=== PATIENT | male | born 1930 | race Caucasian/White ===

== ENCOUNTER 2020-05-24 18:44 | Inpatient (IN) | payer MEDICARE ==
[~2020-05-24] VITALS: Ht 185.4 cm; Wt 104.2 kg
[2020-05-24] MEDS ORDERED: METOPROLOL TART50 MG PO (19:16)
[2020-05-24] MEDS ORDERED: FUROSEMIDE40 MG PO (19:16)
[2020-05-24] MEDS ORDERED: ALDACTONE25 MG PO (19:16)
[2020-05-24] MEDS ORDERED: LIPITOR40 MG PO (19:17)
[2020-05-24] MEDS ORDERED: COZAAR100 MG PO (19:17)
[2020-05-24] MEDS ORDERED: FLOMAX0.4 MG PO (19:18)
[2020-05-24] MEDS ORDERED: FAMOTIDINE40 MG PO (19:18)
[2020-05-24] MEDS ORDERED: ASPIRIN81 MG PO (19:18)
[2020-05-24] MEDS ORDERED: STOOL SOFTENER100 MG PO (19:19)
--- NOTE | 2020-05-24 23:37 | NUR ---
2305 PATIENT ARRIVED VIA STRETCHER. REQUIRED 3PA TO TRANSFER TO BED. PATIENT IS ALERT AND ORIENTED. VS WNL. PATIENT REQUIRED 2L NC IN ED, CONTINUED TREATMENT IN CCU. PATIENT HAS ABRASIONS ON THE BACK OF HIS HEAD THAT ARE NO LONGER BLEEDING. ABRASION ON LEFT KNEE THAT IS CLEAN AND STARTING TO SCAB OVER. IV FLUIDS STARTED. PATIENT HAS YET TO VOID. REPORTS PAIN 8/10 WITH GOAL OF 4. PRN OXY PROVIDED AND LIDOCAIN PATCH APPLIED TO PATIENT'S LOWER BACK. 2+ EDEMA NOTED IN CHAIM LOWER LEGS, PATIENT REPORTS THAT IS "PRETTY GOOD" FOR HIM. ABD IS LARGE, NONTENDER. LAST BM TODAY. NO GI UPSET. LUNG SOUNDS ARE CLEAR. PATIENT DENIED ANY FURTHER NEEDS. CALL LIGHT IN HAND. LIGHTS DIMMED.
--- NOTE | 2020-05-25 02:30 | NUR ---
PATIENT WOKE EASILY TO VOICE. HAS BEEN SLEEPING SOUNDLY. REPORTS BETTER PAIN CONTROL. ENCOURAGED PATIENT TO ATTEMPT TO VOID. PATIENT USED URNAL IN BED INDEPENDENTLY/ 225 MLS OF SLIGHTLY CONCENTRATED URINE NOTED. PATIENT REPORTS BEING COMFORTABLE. DENIES ANY FURTHER NEEDS. CALL LIGHT IN REACH.
--- NOTE | 2020-05-25 05:00 | NUR ---
LAB IN FOR MORNING DRAW. PATIENT WAKES EASILY. DENIES ANY NEEDS FROM RN.
--- NOTE | 2020-05-25 06:00 | NUR ---
PATIENT RESTING IN BED. REPORTS PAIN COMFORTABLE AT REST. HOWEVER PATIENT IS SHIFTED DOWN IN BED AND REQUIRES REPOSITIONED. DORENE AVILA REPORTS PAIN 8/10 AND REQUEST PAIN MEDS. PATIENT DOES NOT WANT THE PRN OXY AND HAS LIDOCAIN PATCH IN PLACE. SCHEDULED TYLENOL PROVIDED EARLY. PATIENT IS 99% ON 2L NC. TITRATED TO ROOM AIR AND PATIENT DESAT TO 88% AFTER A FEW MINS. PLACED BACK ON 2L NC. COFFEE PROVIDED. PATIENT VOIDED IN URNAL. IV FLUIDS PER ORDER, SITE WNL. VS STABLE.
--- NOTE | 2020-05-25 08:47 | NUR ---
PT IS SITTING UP IN BED. WAS ABLE TO EAT HIS BREAKFAST. HAS NO DESIRE TO VOID AT THIS TIME. WATER AND COFFEE AT BEDSIDE TABLE. CURRENTLY ON ROOM AIR, HE IS AWAKE AND 02 IS AT A 96%. CALL LIGHT WITHIN REACH.
--- NOTE | 2020-05-25 09:15 | NUR ---
PATIENTS 02 LEVELS DESTATED TO 86%, WHILE AWAKE AND SPEAKING AND PERFORMING MOVEMENENTS IN BED WITH THE PHYSICAL THERAPIST. pLACED HIM ON 1L O2 NASAL CANULA.
--- NOTE | 2020-05-25 09:20 | NUR ---
FLUIDS WERE DC'D PER DOCTORS ORDERS. SALINE LOCKED HIM. PATIENT IS WORKING WITH PHYSICAL THERAPIST.
--- NOTE | 2020-05-25 10:25 | NUR ---
FULL VERBAL REPORT GIVEN TO KAISER MERRILL, ALL QUESTIONS ANSWERED.
--- NOTE | 2020-05-25 11:11 | NUR ---
PATIENT ARRIVED TO FLOOR VIA CHAIR WITH GEOVANNA SHAIKH. THIS RN INTO ROOM, PATIENT REMAINS IN CHAIR, AT BEDSIDE. PATIENT DENIES PAIN AT THIS TIME AND STATES HE WISHES TO AVOID NARCOTICS. PATIENT STATES HE FEELS HE IS DOING WELL AND WOULD LIKE TO NAP IN THE CHAIR. ASSESSMENT COMPLETED. WATER GIVEN TO PATIENT AND . BLANKET AND PILLOW GIVEN TO PATIENTS FOR COMFORT. NO FURTHER NEEDS AT THIS TIME, CALL LIGHT RESTING IN PATIENTS CHAIR.
--- NOTE | 2020-05-25 13:39 | NUR ---
THIS RN INTO ROOM WITH GEOVANNA MERRILL. PATIENT REQUESTING TO GET BACK TO BED. PATIENT 2 PERSON ASSIST WITH WALKER. PATIENT VERY PAINFUL WITH TRANSFER. PEG AT BEDSIDE REQUESTING TO DISCUSS PATIENTS REGULAR MEDICATIONS. PATIENT MEDICATION LIST OBTAINED FROM AND FAXED TO PHARMACY. PATIENT AGREES TO PRN NARCOTIC PAIN MEDICATION AT THIS TIME. PATIENT GIVE OXYCODONE 5 MG. PATIENT RESTING IN BED, AT BEDSIDE TALKING WITH DAUGHTER ON PHONE.
--- NOTE | 2020-05-25 17:31 | NUR ---
Pt in [place] visiting friends. Discussed plan for pt to return to his home in [facility]. Pt states he has severe pain when getting up or moving of 10/10. He comfortable at rest with pain pills. Does not feel he could ride 12 hours to home. We discussed driving 4 hours and staying the night, I have concerns as I am not sure his could transfer from the truck to the motel room. We also discussed pt returning to his friend home and staying a week or so until his pain has lessened and he can ride in a truck. Fall happened the first day of his stay at his friends home. Pt denies use of DME at baseline, does use a walking stick. Denies financial issues SDOH barriers. Will discuss again in the am as pts had returned to friends house.
--- NOTE | 2020-05-25 18:00 | NUR ---
PRN MED PASS pt encouraged to revisit the level of pain he is in. pt reassessed his own pain and would like something stronger for his pain so that he would be comfortable enough to sleep tonight. pt denies further needs at this time, table and call light within reach.
--- NOTE | 2020-05-25 19:26 | NUR ---
SHIFT REPORT RECEIVED FROM DB MERRILL. PT RESTING IN BED, EYES CLOSED. RR EVEN, UNLABORED. CALL LIGHT IN REACH.
--- NOTE | 2020-05-25 20:30 | NUR ---
ASSESSMENT, VS AND I&O COMPLETED. PT BACK AND HEAD PAIN 03/22. IV WNL, CDI, FLUSHED WELL. ABRASIONS NOTED TO BACK OF HEAD. LUNGS CLEAR, HEART TONES REGULAR. ABD SOFT, NONTENDER, BOWEL TONES ACTIVE, PT STATES NORMAL. CMS INTACT. ICE WATER PROVIDED. SCDs ON. NO OTHER NEEDS AT THIS TIME. CALL LIGHT IN REACH.
--- NOTE | 2020-05-25 23:18 | NUR ---
PT RESTING IN BED, EYES CLOSED. RR EVEN, UNLABORED. SCDs ON. CALL LIGHT IN REACH.
--- NOTE | 2020-05-26 01:30 | NUR ---
PT AWAKE IN ROOM. PAIN 2/10, DENIES NEED FOR INTERVENTION. ICE WATER PROVIDED. NO OTHER NEEDS. CALL LIGHT IN REACH.
--- NOTE | 2020-05-26 03:45 | NUR ---
PT RESTING IN BED, EYES CLOSED. RR EVEN, UNLABORED. CALL LIGHT IN REACH.
--- NOTE | 2020-05-26 05:38 | NUR ---
ASSESSMENT, VS AND I&O COMPLETED. PT DOES NOT MEET UO PARAMETERS, NOTIFIED IN [employer] MESSAGE. URINE IS URBANO AND HAS STRONG ODOR, EDUCATION PROVIDED. ICE WATER PROVIDED. PT PAIN IN BACK 10, PT DECLINES PAIN MEDS. GCS 15, A&O X4. LUNGS CLEAR, HEART TONES REGULAR. ABD SOFT, NONTENDER, BOWEL TONES ACTIVE. CMS INTACT. 1+ BLE EDEMA. IV WNL. SCDs ON. NO OTHER NEEDS AT THIS TIME. CALL LIGHT IN REACH.
--- NOTE | 2020-05-26 06:25 | NUR ---
PT WAS NOT URINE SUFFICIENT BY 25ML THIS SHIFT AND URINE WAS URBANO WITH STRONG ODOR, ICE WATER AND EDUCATION PROVIDED. VSS. PT HAD PRN PAIN MED ONCE. WOUNDS OPEN TO AIR, UNCHANGED. IV WNL. PT HAS 1+BLE EDEMA, SCDs ON. GCS 15, A&O X4.
--- NOTE | 2020-05-26 07:00 | NUR ---
REPORT RECEIVED FROM KAVITHA MERRILL. URINAL EMPTIED OF 50 MLS CONCENTRATED URINE. PT IN BED, EYES CLOSED. VISUALIZED CHEST RISE AND FALL.
--- NOTE | 2020-05-26 09:00 | NUR ---
PT AWAKE, STATES HE IS "IN A LOT OF PAIN". STATES "EVERYTHING HURTS BUT MOSTLY MY BACK". GIVEN PAIN MEDS ALONG W/ MORNING MEDICATIONS. PT STATES HE NEEDS TIME FOR PAIN MEDICATIONS TO KICK IN BEFORE MOVING TO THE CHAIR THIS MORNING. CALL LIGHT IN REACH. IN ROOM.
--- NOTE | 2020-05-26 10:30 | NUR ---
MD AWARE OF LOW URINE OUTPUT. IRREGULAR HR. DECREASED O2 SATS ON ROOM AIR. INCREASED PAIN. CONSTIPATION. SEE RN NOTE.
--- NOTE | 2020-05-26 10:45 | NUR ---
IN TO COMPLETE ASSESSMENT. LUNG SOUNDS ARE CLEAR BUL, DIMINISHED IN BASES. O2 SATS 88% ON ROOM AIR WHILE ASLEEP, PT PUT ON 2 L NC, NOW SATING 97%. SLIGHTLY TACHYCARDIC AT 116. PT STATES HE'S IN 10/10 LOWER BACK PAIN. +1EDEMA BLE. BOWEL TONES ACTIVE. ABD IS MODERATELY DISTENDED AND PT STATES HE FEELS CONSTIPATED AND HAS NOT HAD A BM SINCE 05/24. PT UP AND ABLE TO PIVOT TRANSFER TO CHAIR. LIDOCAINE PATCH PLACED ON LOWER BACK. HR SOUNDS IRREGULAR, DR NORTH NOTIFIED AND EKG ORDERED. PT HAS HAD LOW URINE OUTPUT OF 50 MLS/LAST 4 HOURS, BLADDER SCANNED AND 60 MLS NOTED, DR NORTH NOTIFIED AND ORDERS FOR LR @ 100 MLS/HR.
--- NOTE | 2020-05-26 11:00 | NUR ---
Spoke with pt and . Pt states he is having a "terrible day". Has 02 on as he can not take deep breath. Discussed options with , discussed options for [facility] or return to friends home. Friends have 8 steps into home pt will not be able to navigate. Pt is [facility], but is not service connected. Dr. Reyes to room and pt begins telling him of his pain and how he cannot move as he has pain of 10/10. Dr would like MRI, but pt has a defib/pacemaker. was able to give [employer] cards. I called and per [facility], [id number] may not have an MRI. Dr. Reyes updated. They will procede with other images for back and stomach pain. has decided to make this pt an IP for uncontrolled pain. would like pt to go to a SNF on dc until he is able to rehab and tolerate the ride home. Reviewed Medicare.gov SNF with and viewed SNFS in the area and their rating. would like pt to go to [facility] in [place] as they have a 5 star rating. I will call for a bed and fax chart. Possible discharge at beginning mid of next week.
--- NOTE | 2020-05-26 11:00 | NUR ---
DR NORTH IN TO ASSESS PT. NOTIFIED OF PT SATING 88% ON ROOM AIR AND REQUIRING 2 L NC. ALSO AWARE OF PT'S INCREASED PAIN, NEW ORDERES FOR IV MORPHINE, 1 MG GIVEN. PT TO HAVE CT W/ CONTRAST C-SPINE/ABD. IMAGING CALLED W/ REQUESTS TO GIVE PT PO CONTRAST NOW, AGAIN AT 1300, AND PT TO GO TO CT AT APPROX 1400. RT TO COMPLETE EKG, SINUS TACH W/ FREQUENT PVC'S. CBC AND CMP DRAWN. PT REMAINS UP IN CHAIR. CALL LIGHT IN REACH. IN ROOM.
--- NOTE | 2020-05-26 12:01 | NUR ---
PT TO IMAGING, WILL CHECK BACK
--- NOTE | 2020-05-26 12:30 | NUR ---
IN TO GIVE PT ORAL CONTRAST W/ APPLE JUICE. PT TOLERATING WELL.
--- NOTE | 2020-05-26 13:16 | EKG ---
[facility] [address] [place], [place] [address] Signed Sinus rhythm with 1st degree AV block with occasional premature ventricular complexes Incomplete left bundle branch block Borderline ECG No previous ECGs available Confirmed by GENTRY NORTH DO ([id number]) on 05/26/2020 1:16:25 PM Electronically Signed By: GENTRY NORTH DO 05/26/20 1316 PATIENT NAME: ANDREEA CURRY Electrocardiogram DATE OF : [birth year] PHYSICIAN: GENTRY NORTH DO REPORT #: [id number] REPORT IS CONFIDENTIAL AND NOT TO BE RELEASED WITHOUT AUTHORIZATION
--- NOTE | 2020-05-26 13:19 | EKG ---
[facility] [address] [place], [place] [address] Signed Sinus tachycardia with frequent premature ventricular complexes Otherwise normal ECG When compared with ECG of 24-MAY-2020 19:40, (Unconfirmed) AK interval has decreased Confirmed by GENTRY NORTH DO ([id number]) on 05/26/2020 1:19:20 PM Electronically Signed By: GENTRY NORTH DO 05/26/20 1319 PATIENT NAME: ANDREEA CURRY Electrocardiogram DATE OF : [birth year] PHYSICIAN: GENTRY NORTH DO REPORT #: [id number] REPORT IS CONFIDENTIAL AND NOT TO BE RELEASED WITHOUT AUTHORIZATION
--- NOTE | 2020-05-26 13:30 | NUR ---
PT REQUESTING TO MOVE BACK TO BED. 2 PA ASSIST TO PIVOT W/ FWW. PT BACK IN BED. SCD'S ON. 5 MG OXYCODONE GIVEN. 2ND ROUND OF ORAL CONTRAST W/ APPLE JUICE GIVEN. PT STATES PAIN IS DECREASING W/ PAIN MEDICATIONS RECEIVED TODAY. OFFERED URINAL TO VOID DURING XFER AND PT CONTINUES TO DENY NEED. PT STATES HE IS COMFORTABLE AND WOULD LIKE TO REST. CALL LIGHT INR EACH.
--- NOTE | 2020-05-26 14:20 | NUR ---
PT DEPARTED TO CT
--- NOTE | 2020-05-26 15:10 | NUR ---
PT RETURNED FROM CT. GIVEN PO TYLENOL FOR LOWER BACK PAIN. ALSO GIVEN IV LASIX 10 MG. RESTING IN BED. PUT BACK ON 2 L O2 VIA NC WHILE ASLEEP. SATS 88-90% ON ROOM AIR WHILE SLEEPING. CALL LIGHT IN REACH.
--- NOTE | 2020-05-26 15:30 | NUR ---
DR DONAHUE NOTIFED OF NO URINE OUT FOR THE LAST 4 HOURS AND SODIUM LAB DECREASE TO 130. ORDERS FOR 10 MG IV LASIX GIVEN AND NO CHANGE TO IV FLUIDS. CONTINUE LR @ 100 MLS/HR
--- NOTE | 2020-05-26 15:55 | NUR ---
DR DONAHUE CALLED ABOUT LOW URINE OUTPUT. PT HAS HAD 100 MLS THIS SHIFT AND NONE IN THAT LAST FOR HOURS. ORDERS FOR 10 MG IV LASIX ONCE, NO CHANGE TO FLUIDS. CONTINUE LR @ 100.
--- NOTE | 2020-05-26 16:00 | NUR ---
PT RECEIVED BED BATH W/ MARGARETTE SHAIKH ASSISTANCE. STATES HE FEELS MUCH BETTER.
--- NOTE | 2020-05-26 17:58 | NUR ---
IN TO MEDICATE PT W/ 5 MG OXYCODONE AND PO TYLENOL. REPORTS PAIN IS BETTER AT REST, ABD 5/10. REFUSING DINNER. PT HAS HAD POOR ORAL INTAKE TODAY. GIVEN ENSURE. PT APPEARS SLIGHTLY LESS DISTENDED AND ABD IS SOFTER. URINE OUTPUT HAS IMPROVED AFTER 10 MG LASIX. VOIDED 225 IN URINAL. BACK TO BED. EDUCATED ON INCENTIVE SPIROMETER AND ENCOURAGED TO USE FREQUENTLY TO PREVENT PNEUMONIA. CALL LIGHT IN REACH. PT CALLS APPROPRIATELY.
--- NOTE | 2020-05-26 19:00 | NUR ---
SHIFT REPORT RECEIVED FROM NILE. PT DENIES PAIN AT THIS TIME. CALL LIGHT IN REACH.
--- NOTE | 2020-05-26 19:22 | NUR ---
THE PATIENT'S HELPED ME GIVE HIM A BED BATH AND ALSO SHAMPOO HIS HAIR AND PUT LOTION ON HIS ARMS AND FEET.
--- NOTE | 2020-05-26 22:03 | NUR ---
ASSESSMENT, VS AND I&O COMPLETED. SCHEDULED MEDS PROVIDED. PT DENIES BACK PAIN. GCS 15, A&O. LUNGS CLEAR, 97% ON 1L NC. HEART TONES REGULAR. ABD MORE FIRM THAN NORMAL ACCORDING TO PT, MILDLY DISTENDED, PT STATES HE HAS SOME ABD DISCOMFORT "LIKE I HAVE ON A BELT THAT IS TOO TIGHT". PT IS PASSING GAS, BOWEL TONES ACTIVE. CMS INTACT. SCDs ON. TRACE EDEMA IN BLE. IV WNL, CDI, FLUSHED WELL. IV FLUIDS INFUSING PER ORDER. PT IS ON BED SQUIRES.
--- NOTE | 2020-05-26 22:25 | NUR ---
PT TAKEN OFF BEDPAN. NO RESULTS. NO OTHER NEEDS AT THIS TIME. CALL LIGHT IN REACH.
--- NOTE | 2020-05-27 | NUR ---
PT RESTING IN BED, EYES CLOSED. RR EVEN, UNLABORED. CALL LIGHT IN REACH.
--- NOTE | 2020-05-27 02:15 | NUR ---
PT RESTING IN BED, EYES CLOSED. RR EVEN, UNLABORED. CALL LIGHT IN REACH.
--- NOTE | 2020-05-27 04:00 | NUR ---
PT RESTING IN BED, EYES CLOSED. RR EVEN, UNLABORED. IV FLUIDS INFUSING PER ORDER. CALL LIGHT IN REACH.
--- NOTE | 2020-05-27 06:21 | NUR ---
ASSESSMENT, VS AND I&O COMPLETED. PT DENIES ALL PAIN THIS MORNING. GCS 15, A&O X4. LUNGS CLEAR. HEART TONES IRREGULAR. ABD MILDLY FIRM, NONTENDER, PT STATES MILDLY DISTENDED, BOWEL TONES ACTIVE. PT HAS BEEN PASSING FLATUS BUT NO BM YET. CMS INTACT. IV WNL, IV FLUIDS INFUSING PER ORDER. ABRASIONS ON PETERIOR SCALP HEALING WELL, WNL. LEFT KNEE ABRASION WNL. BLE EDEMA 1+. NO OTHER NEEDS AT THIS TIME. CALL LIGHT IN REACH.
--- NOTE | 2020-05-27 10:28 | NUR ---
CALL LIGHT ANSWERED. PT ATTEMPTED TO VOID IN URINAL AND SPILLED IN ON FLOOR AND BEDDING. LINENS CHANGED AND PT ASSISTED TO CHAIR. NEW GOWN PROVIDED [facility] CALLED. PT ATE ALL OF BREAKFAST. VANCO STARTED. MOTHER AT BEDSIDE. [place]ALLASS PAIN. CALL LIGHT IN REACH.
--- NOTE | 2020-05-27 10:38 | NUR ---
Oxycodone 5mg po admin for 6/10 lower back pain.
--- NOTE | 2020-05-27 12:01 | NUR ---
Patient sitting up in bed eating lunch. Patient reports recent oxycodone is helping his lower back pain. No needs at this time. Personal supplies and call light within reach. No needs at this time.
--- NOTE | 2020-05-27 14:16 | NUR ---
CALL MADE TO JASMINA FROM IMAGING. PER REQUEST DR DONAHUE WANTS IMAGIES SENT TO [facility].
--- NOTE | 2020-05-27 15:00 | NUR ---
Assisted patient to bedside commode. Patient given a bit of time to attempt to have bm; remained with patient per their request for privacy. This RN and GARFIELD Sorensen in to assist patient to go back to bed. Patient reports "terrible stomach pain". Patient reports he suffers from chronic constipation, but "never this bad". at bedside asked this RN "what are you going to do about this". This RN asked patient if he has any other discomfort or symptoms-patient declined and reports "just stomach and back pain". Patient denies chest pain and or shortness of breath at this time. Suppository order present in room at this time and to be admin with RN Franchesca page. RN-education provided to patient and regarding suppository medication, possibility of increased pain when sitting in upright position for an extended period of time. appears upset with patient being uncomfortable. This RN encouraged patient to take pain medications to help with pain-pt receptive and took. Patient assisted back to bed and suppository given as ordered. Education done with patient and on pain management, when to ask for pain medications and how frequent patient can have them. Morphone IVP discontinued as patient reports he does not tolerate well. Dilaudid started in replacement of morphine per Dr. Santos for breakthrough pain. Patient reports lower back pain as 9/10. Patient offered dilaudid at this time-patient declined to take at this time. Encouraged patient and to call for assistance and to speak of if there are needs-bother patient and receptive to plan of care at this time.
--- NOTE | 2020-05-27 18:28 | NUR ---
Patient in bed resting, alert and oriented x3. Patient denies pain at this time. Patient provided with ensure. Fresh water provided. Personal supplies and call light within reach.
--- NOTE | 2020-05-27 19:35 | NUR ---
SHIFT REPORT RECEIVED FROM DAYSHIFT [facility] AT BEDSIDE, pt AWAKE AND RESTING IN BED. ALSO IN ROOM. BOARD UPDATED, CALL LIGHT IN REACH.
--- NOTE | 2020-05-27 19:44 | NUR ---
in to provide pt with urinal, no further needs, in rm
--- NOTE | 2020-05-27 20:39 | NUR ---
ASSESSMENT COMPLETE, SCHEDULED MEDS GIVEN. VSS, HR SOMEWHAT TACHY, SCHEDULED LOPRESSOR GIVEN. IV SITE WNL, FLUSHES EASILY. pt REFUSES PAIN PATCH AT THIS TIME, DENIES PAIN AT REST. SCHEDULED TYLENOL GIVEN. pT BOOSTED IN BED, IN ROOM. NO FURTHER NEEDS. CALL LIGHT IN REACH. pT PLACED ON 1.5LNC FOR O2 SAT IN UPPER 80'S, WILL MONITOR.
--- NOTE | 2020-05-27 23:17 | NUR ---
pt RESTING QUIETLY IN BED, EYES CLOSED. RR EVEN AND UNLABORED. 1.5LNC IN PLACE, NO NEEDS VERBALIZED. CALL LIGHT IN REACH.
--- NOTE | 2020-05-28 00:58 | NUR ---
CALL LIGHT ANSWERED, pt UP 2PA WITH FWW TO BSC. SMALL LIQUD BM NOTED, pt BACK TO BED AND TUCKED IN WITH WARM BLANKET, THEN STATES, "OH I THINK I'M MAKING A MESS". pt WISHES TO COMPLETE BM IN BED AND WILL CALL ONCE READY TO GET CLEANED UP. REFUSED BED SQUIRES. NO FURTHER NEEDS, CALL LIGHT IN REACH.
--- NOTE | 2020-05-28 01:42 | NUR ---
pt CLEANED UP AFTER SMALL SMEAR BM, WISHES TO RECEIVE MILK OF MAG IN MORNING. ASSESSMENT COMPLETE, NO NEW CHANGES OR CONCERNS. IN ROOM. CALL LIGHT IN REACH. PRN PAIN MEDICAITON GIVEN FOR 6/10 PAIN IN BACK.
--- NOTE | 2020-05-28 04:56 | NUR ---
pt RESTING IN BED WITH EYES CLOSED, RR EVEN AND UNLABORED. 1.5LNC IN PLACE. NO DISTRESS NOTED. CALL LIGHT IN REACH. IN ROOM.
--- NOTE | 2020-05-28 08:50 | NUR ---
Oxycodone 10mg po admin for reports of 5/10 lower back pain.
--- NOTE | 2020-05-28 11:38 | NUR ---
Patient resting in bed, alert and oriented x3. Patient is on 1.5L oxygen per nc. Patient reports passing gas. Several bowel movements per report. Patient has no current needs. Personal supplies and call light within reach.
--- NOTE | 2020-05-28 14:33 | NUR ---
Patient resting in bed, alert and orinted x4. Patient has no distress, respirations even and non labored. Patient has no needs. Urinal emptied. at bedside. Personal supplies and call light within reach.
--- NOTE | 2020-05-28 16:00 | NUR ---
Admin Oxycodone 5mg po for reports of 5/10 lower back pain.
[2020-05-28] MEDS ORDERED: OXYCODONE HCL5 MG PO (16:23)
--- NOTE | 2020-05-28 19:30 | NUR ---
SHIFT REPORT RECEIVED FROM DAYSHIFT [facility] AT BEDSIDE. pt DROWSY AND RESTING IN BED, 1.5LNC IN PLACE. AWOKE TO VOICE, NO NEEDS VERBALIZED. CALL LIGHT IN REACH. BOARD UPDATED.
--- NOTE | 2020-05-28 20:39 | NUR ---
ASSESSMENT COMPLETE, SCHEDULED MEDS GIVEN, SEE EMAR. pt A/0, VSS. PAIN TOLERABLE AT 4/10, REFUSES PAIN PATCH AT THIS TIME. SCD'S IN PLACE, NO CONCERNS OR COMPLIANTS VERBALIZED AT THIS TIME. CALL LIGHT IN REACH.
--- NOTE | 2020-05-28 22:41 | NUR ---
pt TITRATED TO RA, O2 SATS MAINTAINING IN UPPER 90'S. EYES CLOSED, RR EVEN AND UNLABORED. CALL LIGHT IN REACH.
--- NOTE | 2020-05-29 01:09 | NUR ---
pt RESTING IN BED, EYES CLOSED. RR EVEN AND UNLABORED. NO DISTRESS NOTED, CALL LIGHT IN REACH.
--- NOTE | 2020-05-29 02:57 | NUR ---
pt AWAKE AND RESTING IN BED, REPORTS BEING ABLE TO SLEEP, BUT DENIES CONCERNS. ASSESSMENT COMPLETE, NO NEW CHANGES. O2 SAT 94% ON RA, HR 85. pt REFUSED SCD'S EARLIER IN SHIFT AND REFUSES TO WEAR THEM AT THIS TIME. A/OX4.CALL LIGHT IN REACH.
--- NOTE | 2020-05-29 04:09 | NUR ---
5MG PO PRN OXY GIVEN FOR 6/10 BACK PAIN, ROOM TIDED, pt REPORTS NOT BEING ABLE TO SLEEP. ASSSISTED WITH BLANKETS AND FRESH WATER GIVEN, NO FURTHER NEEDS, CALL LIGHT IN REACH.
--- NOTE | 2020-05-29 07:02 | NUR ---
WITH HELP FROM ENMA MERRILL, pt CLEANED UP AFTER SPILLING URINAL. NEW GOWN IN PLACE AND COMPLETE BED CHANGE DONE. PRN OXY GIVEN FOR INCREASING PAIN, SEE EMAR. NO FURTHER NEEDS, CALL LIGHT IN REACH VS AND I&O'S COMPELTE
--- NOTE | 2020-05-29 07:23 | NUR ---
PT AWAKE AND INTERACTIVE AT SHIFT EXCHANGE. SNORING SOFTLY AT THIS TIME APPEARS COMFORTABLE.
--- NOTE | 2020-05-29 08:02 | NUR ---
PT REPOSITIONING SELF IN BED. SITTING UP WITH MORNING MEAL. STATES HE FELT PRETTY GOOD UNTIL HE HAD TO MOVE. DR OMER IN TO SEE PT ALL QUESTIONS ANSWERED.
--- NOTE | 2020-05-29 08:55 | NUR ---
both nares swabbed for covid-19 without complication. sample taken to [facility] for rapid testing.
--- NOTE | 2020-05-29 09:10 | NUR ---
Notified by Isabel from [facility], they will accept this pt today. Would like pt to arrive at 1 pm. I will schedule w[facility] van. notified and orders completed with [facility]. Covid test was ordered 0730 am. Pt has been vacinated x 2 and will send results when completed. Orders, [facility], notes from PT/OT and Drs notes for the weekend faxed to Isabel. Spoke with pt and and they are aware of transport for 11:30 per [facility] van. is aware of self pain.
--- NOTE | 2020-05-29 09:23 | NUR ---
PATIENT IS SITTING UP IN BED. AT BEDSIDE. VITALS AND I&OS ARE DONE AND DOCUMENTED. CALL LIGHT IS IN REACH. NO FURTHER NEEDS AT THIS TIME.
--- NOTE | 2020-05-29 09:37 | NUR ---
PT NIBBLES ON BITES ONLY OF MORNING MEAL. DR OMER IN TO SEE HIM DISCUSSES DC TO SNF TODAY WELL REFERRAL TO OTHER MD. PT PRESENT AT THIS TIME, PT DOZING OFF AND ON.
--- NOTE | 2020-05-29 10:15 | NUR ---
UPDATE R/T TRANSPORT TO SNF DISCUSSED WITH PT . HE IS DOZING AT THIS TIME AWAKENS TO VOICE AGREES HE IS COMFORTABLE. ALL QUESTIONS ANSWERED
--- NOTE | 2020-05-29 12:00 | NUR ---
Notified by Isabel, she did not receive the chart. Updated all was faxed and originals were placed in envelope and sent with the pt, including rx. Pt should be arriving in next 15-20 min.
== END 2020-05-29 11:30 | DRG 552 ==
LOC: ED 18:44 → CCU 18:45 → FBC 05-25 10:50 → MS 05-25 10:50 → CCU 05-25 10:50 → MS 05-26 11:23
PROVIDERS: ADMIT Student in an Organized Health Care Education/Training Program; ATTEND Student in an Organized Health Care Education/Training Program
DX: S32.010A Wedge compression fracture of first lumbar vertebra, initial encounter for closed fracture (principal); I13.0 Hypertensive heart and chronic kidney disease with heart failure and stage 1 through stage 4 chronic kidney disease, or unspecified chronic kidney disease; Z20.822 Contact with and (suspected) exposure to COVID-19; N18.9 Chronic kidney disease, unspecified; I50.9 Heart failure, unspecified; I25.10 Atherosclerotic heart disease of native coronary artery without angina pectoris; K21.9 Gastro-esophageal reflux disease without esophagitis; N40.0 Benign prostatic hyperplasia without lower urinary tract symptoms; R14.0 Abdominal distension (gaseous); R00.0 Tachycardia, unspecified; W17.89XA Other fall from one level to another, initial encounter; Z88.0 Allergy status to penicillin; Z79.899 Other long term (current) drug therapy; Z79.82 Long term (current) use of aspirin; Z95.2 Presence of prosthetic heart valve; Z95.0 Presence of cardiac pacemaker
CPT/HCPCS: 36415; 70450; 72125; 72128; 74176; 74177; 80048; 80053; 81001; 83735; 85025; 90714; 93005; 93010; 97110; 97116; 97162; 97165; 97530; A9270; C9803; J1170; J1940; J2270; J2405; J7121; Q9967; U0003